=== PATIENT | male | born 1945 | race Caucasian/White ===

== ENCOUNTER 2017-04-11 10:33 | Outpatient (CLI) | payer MEDICARE, BC ==
[~2017-04-11] VITALS: Ht 170.2 cm; Wt 102.3 kg
--- NOTE | ~2017-04-11 | HEMODYNAMI ---
PATIENT:AMLA TIM MEDICAL RECORD: [id number] : 45 LOCATION:[facility] ADMISSION DATE: 04/11/17 Generatedon:04/11/201713:41 Patient name: ALMA TIM Patient #: [id number] SSN: : Date of study: 04/11/2017 Page: Of Hemodynamic Procedure Report Patient Data Patient Demographics Procedure consent was obtained First Name: ALMA Gender: Male Last Name: GLENROY : 1945 Patient #: [id number] Age: 71 year(s) Race: Unknown Additional ID: [id number] Contact details [address]: [address] [place] [address] State: [place] City: [place] Zip code: [address] Past Medical History Allergies: No known allergies Admission Admission Data Admission Date: 04/11/2017 Admission Time: 10:33 Height (in.): 5.7 BSA: 0.36 (m2) Height (cm.): 14.48 BMI: 5020.38 (kg/m2) Weight (lbs.): 232 Weight (kg.): 105.23 Lab Results Lab Result Date: 04/11/2017 Lab Result Time: 0:00 Biochemistry Name Units Result Min Max BUN mg/dl 27 --(----)-* 7 18 Creatinine mg/dl 1.7 --(----)-* 0.6 1.3 CBC Name Units Result Min Max Hemoglobin g/dl 40.4 --(----)-* 13.5 17.5 Procedure Procedure Types Cath Procedure Diagnostic Procedure LHC LHC w/Coronaries w/Grafts Miscellaneous Procedures Moderate Sedation up to 15 minutes Procedure Description Procedure Date Procedure Date: 04/11/2017 Procedure Start Time: 13:21 Procedure End Time: 13:39 Procedure Staff Name Function Roberto Chandler RT Monitor Tong Arnett RN Nurse Say Almaguer MD Performing Physician Cari Mcknight RT Scrub Hattie Perez RT Monitor Procedure Data Cath Procedure Fluoroscopy Diagnostic fluoroscopy Total fluoroscopy Time: 2.6 time: 2.6 min min Diagnostic fluoroscopy Total fluoroscopy dose: dose: 1517 mGy 1517 mGy Contrast Material Contrast Material Type Amount (ml) Isovue 300 96 Entry Location Entry Primary Successful Side Size Upsize Upsize Entry Closure Succes sful Closure Location (Fr) 1 (Fr) 2 (Fr) Remarks Device Remarks Femoral Right 5 Fr Exoseal artery Estimated blood loss: 5 ml Diagnostic catheters Device Type Used For End Catheter Placement Cordis 5Fr JL 4.0 Procedure Catheter (MP) Cordis 5Fr 3DRC Catheter Procedure (MP) Cordis 5Fr Pigtail Procedure Catheter (MP) Procedure Complications No complications Procedure Medications Medication Administration Route Dosage Oxygen NC 2 l/min Benadryl I.V. 50 mg Lidocaine 2% added to field 20 Heparin Flush Bag added to field 2 bags (1000units/500ml NS) 0.9% NaCl I.V. 100 ml/hr Versed I.V. 1 mg Fentanyl I.V. 50 mcg Versed I.V. 1 mg Fentanyl I.V. 50 mcg Versed I.V. 0.5 mg Fentanyl I.V. 25 mcg Hemodynamics Rest BSA: 0.36 (m2) HGB: 40.4 (g/dl) O2 Consumption: Estimated: 38.99 (ml/min) O2 Con sumption indexed: Estimated:108.31 (ml/min/m) Heart Rate: 51 (bpm) Pressure Samples Time Site Value (mmHg) Purpose Heart Use Rate(bpm) 13:30 LV 143/11,21 Snapshot 66 Gradients Valve Time Site Site Mean SEP/DFP Peak To Heart Use 1 2 (mmHg) (sec/min) Peak Rate (mmHg) (bpm) Aortic 13:31 LV AO 58 Snapshots Pre Cath Intra NCS Post Cath Vital Signs Time Heart Resp SPO2 etCO2 NIBP (mmHg) Rhythm Pain Sedation Rate (ipm) (%) (mmHg) Status Level (bpm) 13:11:24 50 16 100 36.9 158/70(124) NSR 0 (11) 10(A) , No pain 13:15:48 50 16 99 32.4 154/68(112) NSR 0 (11) 10(A) , No pain 13:20:17 48 15 94 0 152/70(128) NSR 0 (11) 10(A) , No pain 13:24:43 46 15 94 32.4 124/57(108) NSR 0 (11) 9(A) , No pain 13:29:01 60 16 94 34 142/69(115) NSR 0 (11) 9(A) , No pain 13:33:27 66 17 96 35 143/65(93) NSR 0 (11) 9(A) , No pain 13:37:39 53 15 98 36.1 148/66(113) NSR 0 (11) 10(A) , No pain Medications Time Medication Route Dose Verified Delivered Reason Notes Effe ctiveness by by 13:13:32 Oxygen NC 2 Say Berniceie used for l/min [facility] Arnett lead electrical controls engineer 13:13:39 Benadryl I.V. 50 mg Say Berniceie used for [facility] Arnett lead electrical controls engineer 13:17:10 Heparin Flush added 2 Say Say used for Bag to bags [facility] procedure (1000units/500ml field MD ISIDRO NS) 13:17:10 Lidocaine 2% added 20ml Say Say for local to vial [facility] anesthetic field MD ISIDRO 13:17:16 0.9% NaCl I.V. 100 Say Buffie Per ml/hr [facility] German Arnett RN physician 13:17:25 Versed I.V. 1 mg Say Berniceie for [facility] German Arnett RN sedation 13:19:45 Fentanyl I.V. [address] for mcg [facility] German Arnett RN sedation 13:24:42 Versed I.V. 1 mg Say Buffie for BerglandLisbeth Arnett RN sedation 13:24:45 Fentanyl I.V. [address] for mcg [facility] German Arnett RN sedation 13:29:47 Versed I.V. 0.5 Say Berniceie for mg [facility] German Arnett RN sedation 13:29:51 Fentanyl I.V. 25 Say [address] for mcg [facility] German Arnett RN sedation Procedure Log Time Note 12:54:03 Patient Height : 5.7 inches 12:54:08 Patient Weight : 232 lbs 12:54:58 Tong Arnett RN sent for patient. Start room use. 12:55:00 Time tracking: Regular hours 12:55:04 Plan of Care:Hemodynamics will remain stable., Cardiac rhythm will remain stable., Comfort level will be maintained., Respiratory function will remain adequate., Patient/ family verbilizes understanding of procedure., Procedure tolerated without complication., Recovers from procedure without complications.. 13:00:57 Patient received from Pre/Post Procedure Room to CCL 1 Alert and oriented. Tansferred to table in Supine position. 13:00:58 Correct patient and procedure confirmed by team. 13:00:58 Warm blankets applied, and josie hugger turned on for patient comfort. 13:00:59 Signed procedure consent form obtained from patient. 13:01:01 ECG and BP/O2 sat monitors applied to patient. 13:10:02 H&P Date Dictated: 04/11/2017 Within 30 days and on chart., H&P Addendum completed by physician on day of procedure. (MUST COMPLETE FOR ALL OUTPATIENTS). 13:10:04 Vital chart was started 13:10:06 Baseline sample Acquired. 13:10:11 Rhythm: sinus bradycardia 13:10:12 Full Disclosure recording started 13:10:13 Pre-procedure instructions explained to patient. 13:10:14 Pre-op teaching completed and patient verbalized understanding. 13:10:16 Family in waiting room. 13:10:19 Patient NPO since Midnight. 13:10:26 Patient allergic to No known allergies 13:10:30 Is the patient allergic to Iodine/contrast media? No. 13:10:31 Is patient on blood thinner?Yes 13:10:36 ACC The patient was administered the following blood thiners within the last 24 hours: ACCEffient 13:10:39 Patient diabetic? No. 13:10:44 Previous problem with sedation/anesthesia? No ? 13:10:46 Snore? Yes 13:10:48 Sleep apnea? Yes 13:10:50 Deviated septum? No 13:10:51 Opens mouth fully? Yes 13:10:53 Sticks out tongue? Yes 13:10:57 Airway obstruction? No ? 13:11:00 Dentures? No ? 13:11:03 Pre procedure: right dorsailis pedis pulse 2+ Normal; easily identifiable; not easily obliterated 13:11:10 IV patent on arrival in right hand with 0.9% NaCl at [facility]. 13:11:54 Lab Result : Hemoglobin 40.4 g/dl 13:11:54 Lab Result : Creatinine 1.7 mg/dl 13:11:54 Lab Result : BUN 27 mg/dl 13:11:58 Lab results completed and on chart. 13:12:01 Right groin area was prepped with chlora-prep and draped in sterile fashion 13:12:02 Alarms reviewed by R. N. 13:12:03 Sharps counted by scrub and verified by R.N. 13:12:04 Physician arrived 13:12:05 --------ALL STOP TIME OUT------ 13:12:06 Final Timeout: patient, procedure, and site verified with staff and physician. All members of the team are in agreement. 13:12:08 Right groin site verified by team. 13:12:12 Physical assessment completed. ASA score P 2 - A patient with mild systemic disease as per Say Almaguer MD. 13:12:16 Sedation plan: IV Moderate Sedation Medication:Versed, Fentanyl 13:13:32 Oxygen 2 l/min NC was administered by Tong Arnett RN; used for procedure; 13:13:39 Benadryl 50 mg I.V. was administered by Tong Arnett RN; used for procedure; 13:17:10 Heparin Flush Bag (1000units/500ml NS) 2 bags added to field was administered by Say Almaguer MD; used for procedure; 13:17:10 Lidocaine 2% 20ml vial added to field was administered by Sya Almaguer MD; for local anesthetic; 13:17:16 0.9% NaCl 100 ml/hr I.V. was administered by Tong Arnett RN; Per physician; 13:17:25 Versed 1 mg I.V. was administered by Tong Arnett RN; for sedation; 13:19:18 Use device set Femoral Dx 13:19:20 Acist Syringe opened to sterile field. 13:19:27 Tegaderm 4 x 4 opened to sterile field. 13:19:28 Acist Hand Control opened to sterile field. 13:19:28 Acist Manifold opened to sterile field. 13:19:29 Bag Decanter opened to sterile field. 13:19:30 Terumo 5Fr Mountain Iron Sheath opened to sterile field. 13:19:30 Medline Cath Pack opened to sterile field. 13:19:31 St Rehan 260cm J .035 wire opened to sterile field. 13:19:32 Diagnostic Infinity 5Fr Multipack catheter opened to sterile field. 13:19:45 Fentanyl 50 mcg I.V. was administered by Tong Arnett RN; for sedation; 13:21:04 Procedure started. 13:21:08 Local anesthetic to right femoral artery with Lidocaine 2% by Say Almaguer MD.INITIAL ACCESS ONLY 13:21:39 A 5 Fr sheath was inserted into the Right Femoral artery 13:23:52 A Cordis 5Fr JL 4.0 Catheter (MP) was advanced over the wire and used for Procedure. 13:24:42 Versed 1 mg I.V. was administered by Tong Arnett RN; for sedation; 13:24:45 Fentanyl 50 mcg I.V. was administered by Tong Arnett RN; for sedation; 13:24:53 LCA angiography performed. 13:25:26 Catheter removed. 13:25:56 A Cordis 5Fr 3DRC Catheter (MP) was advanced over the wire and used for Procedure. 13:26:41 RCA angiography performed. 13:27:53 SVG to Circ occluded. 13:28:11 SVG to Diag angiography performed. 13:28:48 DOYLE to LAD angiography performed. 13:29:19 Catheter removed. 13:29:30 A Cordis 5Fr Pigtail Catheter (MP) was advanced over the wire and used for Procedure. 13:29:47 Versed 0.5 mg I.V. was administered by Tong Arnett RN; for sedation; 13:29:51 Fentanyl 25 mcg I.V. was administered by Tong Arnett RN; for sedation; 13:30:00 LV hemodynamics recorded. 13:30:00 LV gram done using SHEPHERD 13:30:03 Injector settings: Ml/sec: 10, Volume: 20, 13:32:13 EF : 55 % 13:32:24 Cordis 5Fr Exoseal opened to sterile field. 13:32:34 Sheath removed intact; hemostasis achieved with Exoseal to the Right Femoral artery. 13:32:36 Procedure ended.(Physican Out) 13:32:47 Fluoroscopy time 02.60 minutes. 13:32:53 Fluoroscopy dose: 1517 mGy 13:32:53 Flurop Dose total: 1517 13:33:18 Contrast amount:Isovue 300 96ml. 13:33:19 Sharps counted by scrub and verified by R.N. 13:33:21 Insertion/operative site no bleeding no hematoma. 13:33:24 Post-op/insertion site Right Femoral artery dressed using a 4 x 4 and Tegaderm. 13:33:28 Post right femoral artery:stable, soft, clean and dry 13:33:29 Post Procedure Pulses reassessed and unchanged 13:33:32 Post procedure: right dorsailis pedis pulse 2+ Normal; easily identifiable; not easily obliterated. 13:33:35 Post-procedure physical assessment completed. ASA score P 2 - A patient with mild systemic disease as per Say Almaguer MD. 13:33:40 Post procedure rhythm: unchanged. 13:33:48 Estimated blood loss: 5 ml 13:33:49 Post procedure instruction explained to patient.Patient verbalizes understanding. 13:33:50 Patient needs reinforcement of post procedure teaching. 13:34:10 Procedure type changed to Cath procedure, Diagnostic procedure, LHC, LHC w/Coronaries w/Grafts, Miscellaneous Procedures, Moderate Sedation up to 15 minutes 13:34:29 Procedure and supply charges have been captured, reviewed, submitted and are correct. 13:34:31 Procedure Complication : No complications 13:38:56 Vital chart was stopped 13:38:57 See physician's report for complete and final results. 13:39:00 Report given to Pre/Post Procedure Room. 13:39:03 Patient transfered to Pre/Post Procedure Room with Bed. 13:39:05 Full Disclosure recording stopped 13:39:05 Procedure ended. 13:39:12 End room use (Document Last) Device Usage Item Name Manufacture Quantity Catalog Hospital Part Current Minimal Lo t# / Number Charge Number Stock Stock Serial# Code Acist Acist 1 [id number] 542819 494792 [id number] 20 Syringe [employer] Inc Tegaderm 4 3M 1 1626W 008465 625262 760147 5 x 4 Acist Acist 1 60074 586439 183405 490784 5 Manifold [employer] Inc Acist Hand Acist 1 50541 327990 669769 090086 5 Control [employer] Inc Bag Microtek 1 2002S 804218 22945 458911 5 Virtual Command. Medline Cardinal 1 [id number] 110787 98764 871940 5 [employer] Terumo 5Fr Terumo 1 BEH176 907088 854026 945560 [address] Rehan 1 168103 867989 176758 882506 30 260cm J .035 wire Diagnostic Cardinal 1 [id number] 247485 22850 878003 30 Infinity Health 5Fr Multipack catheter Cordis 5Fr Cardinal 1 [id number] 5 JL 4.0 Health Catheter (MP) Cordis 5Fr Cardinal 1 365244 5 3DRC Health Catheter (MP) Cordis 5Fr Cardinal 1 [id number] 5 Pigtail Health Catheter (MP) Cordis 5Fr Cardinal 1 EX500 575934 367770 484301 10 [facility] Health Signature Audit [place] Stage Time Signature Unsigned Intra-Procedure 04/11/2017 Hattie Perez 1:41:28 PM RT(R) Signatures Monitor : Roberto Chandler RT Signature : Date : Time : Monitor : Hattie Perez Signature : RT Date : Time : [place] [address] [place] [address]
[~2017-04-11 10:33] MED LIST: BAYER CHEWABLE81 MG PO; BENICAR20 MG PO; CORGARD20 MG PO; EFFIENT10 MG PO; NORVASC5 MG PO; PRILOSEC20 MG PO
[2017-04-11] MEDS ORDERED: TENORMIN25 MG PO (11:01)
[2017-04-11 11:08] VITALS: BP 154/56; Ht 170.2 cm; Wt 102.3 kg
[2017-04-11 11:35] LABS: ANION GAP 14.7 mmol/L (8-16); CALCIUM 9.4 mg/dL (8.5-10.1); CARBON DIOXIDE 24.4 mmol/L (21.0-32.0); CREATININE - SERUM 1.7 mg/dL (0.6-1.3); POTASSIUM - SERUM 5.1 mmol/L (3.5-5.1)
[2017-04-11 11:46] LABS: BASOPHILS 0.4 % (0-2); EOSINOPHILS 1.9 % (0-7); HEMATOCRIT 40.4 % (42.0-54.0); HEMOGLOBIN 13.5 g/dL (13.5-17.5); IMMATURE GRANULOCYTES 0.3 % (0-5); LYMPHOCYTES 22.1 % (15-50); MCH 32.4 pg (26.0-34.0); MCHC 33.4 g/dL (31.0-37.0); MCV 96.9 fL (80.0-100.0); MONOCYTES 7.6 % (2-11); NEUTROPHILS 67.7 % (40-80); PLATELET COUNT 225 10x3/uL (130-400); RBC 4.17 10x6/uL (4.20-6.10); RDW 12.4 % (11.5-14.5); WBC 6.8 10x3/uL (4.8-10.8)
--- NOTE | 2017-04-11 14:18 | NUR ---
1405 LYING FLAT, ROOM AIR. SBRADY, RATE 47 W NO C/O CHEST PAIN. PULSES PALP X 4. R GROIN 5F EXOSEAL C/D/I W NO HEMATOMA OR BLEEDING DR. HOOKER AT BEDSIDE TO TALK WITH FAMILY.
--- NOTE | 2017-04-11 15:40 | NUR ---
1435 REMAINS FLAT. ALL VITALS WNL. R GROIN C/D/I NO HEMATOMA OR BLEEDING. VOIDED 300CC VIA URINAL. AT SIDE. 1530 PIV REMOVED FROM RIGHT HAND WITH BANDAID APPLIED. R GROIN C/D/I. UP TO BEDSIDE TO DRESS WITH ASSIST FROM . D/C INSTRUCTIONS DISCUSSED WITH PATIENT AND AT BEDSIDE. WHEELED OUT VIA WHEELCHAIR BY CATH TEAM.
--- NOTE | 2017-04-13 10:01 | OP ---
PATIENT NAME: ALMA TIM MEDICAL RECORD: [id number] :45 LOCATION:D.CAT ADMISSION DATE: SURGEON: UMAIR AMADOR MD DATE OF OPERATION: 04/11/2017 PROCEDURES: Left heart catheterization, selective coronary angiography, right femoral approach. CATHETERS: A 5-Czech sheath, 5/4 left and right Issa, 5/4 pig. The procedure was well tolerated and the patient returned to briscoe, sheath removed. ExoSeal device placed. FINDINGS: Left ventriculography in 30-degree SHEPHERD view. Normal wall motion, normal systolic function. CORONARY ANATOMY. LEFT MAIN: Left main fills for a short period of time. Did fill the LAD for a short period, then is totally occluded. CIRCUMFLEX: Circumflex of previous stenting is widely patent without evidence of restenosis. RIGHT CORONARY ARTERY: Again, widely patent stents without evidence of restenosis. BYPASS GRAFTS. 1. DOYLE and LAD is widely patent throughout its course without evidence of post-anastomotic stenosis. 2. Saphenous vein graft to diagonal system is widely patent with small runoff to the distal diagonal. IMPRESSION: Patent grafts including left internal mammary artery to left anterior descending, saphenous vein graft to diagonal, patent stents to circumflex and right normal left ventricular function. TRANSINT:[id number] Voice Confirmation ID: [id number] DOCUMENT ID: [id number] UMAIR AMADOR MD at 1001 CC: [id number] DICTATION DATE: 04/11/17 1344 SUPERVISOR DAIRY SANITATION: 04/11/17 1423 DEP CLI 04/11/17 [place] [id number] [place] [id number]
== END 2017-04-11 15:42 | disposition home or self-care (01) ==
LOC: D.CATH 10:33
PROVIDERS: Internal Medicine Interventional Cardiology
DX: I25.10 Atherosclerotic heart disease of native coronary artery without angina pectoris (principal); Z95.1 Presence of aortocoronary bypass graft; Z95.5 Presence of coronary angioplasty implant and graft; Z01.812 Encounter for preprocedural laboratory examination

== ENCOUNTER → 2017-07-09 12:43 | Outpatient (CLI) | payer MEDICARE, BC ==
[2017-04-11 11:08] VITALS: BMI 35.3
[~2017-07-09 12:43] MED LIST changes: +TENORMIN25 MG PO; +XANAX0.5 MG PO
[2017-07-09 12:56] LABS: ALT (SGPT) 71 U/L (10-68); CALC OSMOLALITY 273 mosm/kg (275-300); CALCIUM 9.6 mg/dL (8.5-10.1); CARBON DIOXIDE 26.5 mmol/L (21.0-32.0); CHLORIDE - SERUM 98 mmol/L (98-107); CHOL - HDL RATIO 7.3 ratio (2.3-4.9); CHOLESTEROL, TOTAL 308 mg/dL (0-200); GLUCOSE 106 mg/dL (74-106); HDL CHOLESTEROL 42 mg/dL (32-96); LDL CHOLESTEROL 210 mg/dL (0-100); POTASSIUM - SERUM 5.7 mmol/L (3.5-5.1); SODIUM 133 mmol/L (136-145); TRIGLYCERIDE 284 mg/dL (30-200); TROPONIN-I < 0.017 ng/mL (0.000-0.060); UREA NITROGEN 36 mg/dL (7-18); eGFR NON AFRICAN AMERICAN 35 mL/min (90-120)
== END | disposition home or self-care (01) ==
LOC: D.LABREF 12:43
PROVIDERS: Internal Medicine Interventional Cardiology
DX: R07.9 Chest pain, unspecified (principal)

== ENCOUNTER 2017-07-11 20:30 | Observation (INO) | payer MEDICARE, BC | END 2017-07-12 14:25 | disposition home or self-care (01) | LOC: D.ER 20:30 → D.M2 21:00 | PROC: 02703DZ Dilation of Coronary Artery, One Artery with Intraluminal Device, Percutaneous Approach (ICD-10-PCS; principal; 2017-07-12) | PROC: 4A023N7 Measurement of Cardiac Sampling and Pressure, Left Heart, Percutaneous Approach (ICD-10-PCS; 2017-07-12) | PROC: B2111ZZ Fluoroscopy of Multiple Coronary Arteries using Low Osmolar Contrast (ICD-10-PCS; 2017-07-12) | PROC: B2151ZZ Fluoroscopy of Left Heart using Low Osmolar Contrast (ICD-10-PCS; 2017-07-12) | PROC: B2181ZZ Fluoroscopy of Left Internal Mammary Bypass Graft using Low Osmolar Contrast (ICD-10-PCS; 2017-07-12) | DX: I25.110 Atherosclerotic heart disease of native coronary artery with unstable angina pectoris (principal); T82.855A Stenosis of coronary artery stent, initial encounter; Y83.8 Other surgical procedures as the cause of abnormal reaction of the patient, or of later complication, without mention of misadventure at the time of the procedure; I10 Essential (primary) hypertension; E78.5 Hyperlipidemia, unspecified; Z95.1 Presence of aortocoronary bypass graft; Z95.5 Presence of coronary angioplasty implant and graft; I45.10 Unspecified right bundle-branch block ==

== ENCOUNTER → 2017-08-01 16:01 | Outpatient (CLI) | payer MEDICARE, BC ==
[2017-07-12 03:23] VITALS: BMI 34.8
[2017-08-01 17:50] LABS: BASOPHILS 0.7 % (0-2); EOSINOPHILS 4.2 % (0-7); HEMATOCRIT 37.8 % (42.0-54.0); HEMOGLOBIN 12.5 g/dL (13.5-17.5); IMMATURE GRANULOCYTES 0.3 % (0-5); LYMPHOCYTES 17.3 % (15-50); MCH 32.1 pg (26.0-34.0); MCHC 33.1 g/dL (31.0-37.0); MCV 97.2 fL (80.0-100.0); MEAN PLATELET VOLUME 10.3 fL (7.4-10.4); MONOCYTES 11.3 % (2-11); NEUTROPHILS 66.2 % (40-80); PLATELET COUNT 247 10x3/uL (130-400); RBC 3.89 10x6/uL (4.20-6.10); RDW 12.8 % (11.5-14.5); WBC 7.4 10x3/uL (4.8-10.8)
[2017-08-01 18:24] LABS: ALT (SGPT) 63 U/L (10-68); CHOL - HDL RATIO 6.5 ratio (2.3-4.9); CHOLESTEROL, TOTAL 261 mg/dL (0-200); CREATINE KINASE 322 UL (21-232); CREATININE - SERUM 1.6 mg/dL (0.6-1.3); HDL CHOLESTEROL 40 mg/dL (32-96); LDL CHOLESTEROL 152 mg/dL (0-100); LDL-HDL RATIO 3.8 ratio (1.5-3.5); THYROID STIMULATING HORMONE 1.43 uIU/mL (0.36-3.74); TRIGLYCERIDE 345 mg/dL (30-200); UREA NITROGEN 35 mg/dL (7-18)
[2017-08-01 19:17] LABS: CKMB 3.6 U/L (0.0-3.6)
== END | disposition home or self-care (01) ==
LOC: D.LABREF 16:01
PROVIDERS: Internal Medicine Interventional Cardiology
DX: E78.5 Hyperlipidemia, unspecified (principal)

== ENCOUNTER → 2017-09-30 17:04 | Outpatient (CLI) | payer MEDICARE, BC ==
[2017-07-12 03:23] VITALS: BMI 34.8
[2017-09-30 20:31] LABS: CHOL - HDL RATIO 2.6 ratio (2.3-4.9); LDL-HDL RATIO 1.1 ratio (1.5-3.5)
== END | disposition home or self-care (01) ==
LOC: D.LABREF 17:04
PROVIDERS: Internal Medicine Interventional Cardiology
DX: E78.5 Hyperlipidemia, unspecified (principal)

== ENCOUNTER → 2018-08-05 16:43 | Outpatient (CLI) | payer MEDICARE, BC ==
[2017-07-12 03:23] VITALS: BMI 34.8
[2018-08-05 17:19] LABS: BASOPHILS 0.6 % (0-2); EOSINOPHILS 2.1 % (0-7); HEMATOCRIT 41.4 % (42.0-54.0); HEMOGLOBIN 13.7 g/dL (13.5-17.5); IMMATURE GRANULOCYTES 0.3 % (0-5); MCH 31.6 pg (26.0-34.0); MCHC 33.1 g/dL (31.0-37.0); MCV 95.6 fL (80.0-100.0); MEAN PLATELET VOLUME 10.5 fL (7.4-10.4); MONOCYTES 9.5 % (2-11); NEUTROPHILS 66.5 % (40-80); PLATELET COUNT 245 10x3/uL (130-400); RBC 4.33 10x6/uL (4.20-6.10); RDW 12.6 % (11.5-14.5); WBC 7.1 10x3/uL (4.8-10.8)
[2018-08-05 17:27] LABS: ANION GAP 16.7 mmol/L (8-16); CALCIUM 9.2 mg/dL (8.5-10.1); CARBON DIOXIDE 25.3 mmol/L (21.0-32.0); CHOL - HDL RATIO 3.2 ratio (2.3-4.9); CREATININE - SERUM 2.1 mg/dL (0.6-1.3); LDL-HDL RATIO 1.4 ratio (1.5-3.5)
== END | disposition home or self-care (01) ==
LOC: D.LABREF 16:43
PROVIDERS: ATTEND Internal Medicine Interventional Cardiology
DX: I25.10 Atherosclerotic heart disease of native coronary artery without angina pectoris (principal)

== ENCOUNTER → 2018-11-04 17:12 | Outpatient (CLI) | payer MEDICARE, BC ==
[2017-07-12 03:23] VITALS: BMI 34.8
[2018-11-04 18:08] LABS: BASOPHILS 0.4 % (0-2); EOSINOPHILS 2.5 % (0-7); HEMATOCRIT 37.8 % (42.0-54.0); HEMOGLOBIN 12.4 g/dL (13.5-17.5); IMMATURE GRANULOCYTES 0.1 % (0-5); LYMPHOCYTES 18.2 % (15-50); MCHC 32.8 g/dL (31.0-37.0); MCV 97.4 fL (80.0-100.0); MEAN PLATELET VOLUME 10.5 fL (7.4-10.4); MONOCYTES 7.7 % (2-11); NEUTROPHILS 71.1 % (40-80); PLATELET COUNT 205 10x3/uL (130-400); RBC 3.88 10x6/uL (4.20-6.10); RDW 12.8 % (11.5-14.5); WBC 6.9 10x3/uL (4.8-10.8)
[2018-11-04 18:20] LABS: ANION GAP 8.1 mmol/L (8-16); CALCIUM 9.1 mg/dL (8.5-10.1); CARBON DIOXIDE 24.4 mmol/L (21.0-32.0); CREATININE - SERUM 1.9 mg/dL (0.6-1.3); POTASSIUM - SERUM 5.5 mmol/L (3.5-5.1)
== END | disposition home or self-care (01) ==
LOC: D.LABREF 17:12
PROVIDERS: ATTEND Internal Medicine Interventional Cardiology
DX: I25.10 Atherosclerotic heart disease of native coronary artery without angina pectoris (principal); I10 Essential (primary) hypertension

== ENCOUNTER → 2020-01-19 20:11 | Outpatient (CLI) | payer MEDICARE, BC ==
[2017-07-12 03:23] VITALS: BMI 34.8
[2020-01-19 21:25] LABS: CHOL - HDL RATIO 2.3 ratio (2.3-4.9); LDL-HDL RATIO 0.9 ratio (1.5-3.5)
== END | disposition home or self-care (01) ==
LOC: D.LABREF 20:11
PROVIDERS: ATTEND Internal Medicine Interventional Cardiology
DX: I25.10 Atherosclerotic heart disease of native coronary artery without angina pectoris (principal); E78.5 Hyperlipidemia, unspecified

== ENCOUNTER → 2020-08-16 12:39 | Outpatient (CLI) | payer MEDICARE, BC ==
[2017-07-12 03:23] VITALS: BMI 34.8
--- NOTE | 2020-08-17 10:02 | EC ---
PATIENT:ALMA TIM DATE OF SERVICE: 08/16/20 SEX: M MEDICAL RECORD: [id number] DATE OF : 45 LOCATION:[facility] AGE OF PATIENT: 75 ADMISSION DATE: 08/16/20 REFERRING PHYSICIAN: INTERPRETING PHYSICIAN: UMAIR AMADOR MD ECHOCARDIOGRAM REPORT ECHO CHARGES 4 ECHO COMPLETE Date: 08/16/20 CLINICAL DIAGNOSIS: CAD/ATRIAL FIB/CABG ASSESS EF AND VALVE DUE TO DYSPNEA ECHOCARDIOGRAPHIC MEASUREMENTS (adult normal given) AC root (d.<3.7cm) 3.4 cm LV Septum d (<1.2 cm> 1.4 cm Valve Excursion 1.3 cm LV Septum (systole) 1.9 cm Left Atria (s.<4.0cm> 3.9 cm LVPW d(<1.2cm) 1.8 cm RV (d.<2.3cm) 4.2 cm LVPW (sytole) 2.2 cm LV diastole(<5.6CM) 5.2 cm MV E-F(>70mm/sec) cm LV systole 3.3 cm LVOT Diameter 1.4 cm MV exc.(>10mm) 1.4 cm Est.ejection fraction (50-75%) % DOPPLER: LVIT cm/sec A 77.0 cm/sec E 90.0 cm/sec LA cm/sec RVSP 20 mmHg LVOT 164 cm/sec AOP1/2T m/s Asc. Ao 218 cm/sec RVOT 82 cm/sec RA cm/sec PA 123 cm/sec AV Gradient Peak 19.02mmHg AV Mean 8.36 mmHg AV Area 1.5 cm MV Gradient Peak 4.63 mmHg MV Mean 1.58 mmHg MV Area cm COMMENTS: Soil Technologist: 2 [place] [address] Director Consumer: 3 Dr. Almaguer TAPE# PACS Pericardial Effusion N DATE OF SERVICE: Adequate 2D, color-flow imaging, spectral Doppler, and M-Mode FINDINGS: LVH is present. Mild LV internal dimension is normal. Wall motion is normal. EF is greater than or equal to 55%. Aortic valve sclerosis without stenosis by Doppler interrogation. Trivial AI by color flow imaging. Left atrium is normal. Mitral valve shows no prolapse. Trace MR. Right side is grossly normal. Mild TR. ECHOCARDIOGRAM REPORT [id number] ALMA TIM TRANSINT:[id number] Voice Confirmation ID: [id number] DOCUMENT ID: [id number] UMAIR AMADOR MD at 1002 CC: [id number] DICTATION DATE: 08/16/20 1530 CREDIT PROCESSOR: 08/16/20 2315 DEP CLI 08/16/20 [place] [id number] [place] [id number]
== END | disposition home or self-care (01) ==
LOC: D.HCCECHO 12:30
PROVIDERS: ATTEND Internal Medicine Interventional Cardiology
DX: I25.10 Atherosclerotic heart disease of native coronary artery without angina pectoris (principal)

== ENCOUNTER 2020-08-30 10:54 | Day surgery (SDC) | payer MEDICARE, BC ==
[~2020-08-30] VITALS: Ht 170.2 cm; Wt 109.1 kg
--- NOTE | ~2020-08-30 | HEMODYNAMI ---
PATIENT:ALMA TIM MEDICAL RECORD: [id number] : 45 LOCATION:[facility] ADMISSION DATE: 08/30/20 Generatedon:114:00 Patient name: ALMA TIM Patient #: [id number] SSN: [id number] : 1945 Date of study: 08/30/2020 Page: Of Hemodynamic Procedure Report Patient Data Patient Demographics Procedure consent was obtained First Name: ALMA Gender: Male Last Name: GLENROY : 1945 Patient #: [id number] Age: 75 year(s) Race: SSN: [id number] Additional ID: [id number] Contact details Address: [address] [place] [address] State: [place] City: [place] Zip code: [address] Past Medical History Allergies: No known allergies Admission Admission Data Admission Date: 08/30/2020 Admission Time: 10:54 Arrival Date: 08/30/2020 Arrival Time: 0:00 Admit Source: Other Insurance Payor: Medicare [facility] #: [id number] Height (in.): 67 BSA: 2.19 (m2) Height (cm.): 170.18 BMI: 37.67 (kg/m2) Weight (lbs.): 240.5 Weight (kg.): 109.09 Lab Results Lab Result Date: 08/30/2020 Lab Result Time: 0:00 Biochemistry Name Units Result Min Max BUN mg/dl 28 --(----)-* 7 18 Creatinine mg/dl 1.5 --(----)-* 0.6 1.3 eGFR ml/min 48 *-(----)-- 90 120 NONAFRICAN CBC Name Units Result Min Max Hematocrit % 40.6 -*(----)-- 42 54 Hemoglobin g/dl 13.4 -*(----)-- 13.5 17.5 Procedure Procedure Types Cath Procedure Diagnostic Procedure [facility] w/Coronaries Sedation Charges Moderate Sedation 40-54 minutes PCI Procedure Hemochron ACT Test PTCA PTCA Initial Procedure Description Procedure Date Procedure Date: 08/30/2020 Procedure Start Time: 13:09 Procedure End Time: 13:54 Procedure Staff Name Function Say Bermudez MD Performing Physician Juanito Sanchez RN Nurse Deneen Hamilton RT Scrub Suyapa Love RT Monitor Procedure Data Cath Procedure Fluoroscopy Diagnostic fluoroscopy Total fluoroscopy Time: time: 20.7 min 20.7 min Diagnostic fluoroscopy Total fluoroscopy dose: dose: 2992 mGy 2992 mGy Contrast Material Contrast Material Type Amount (ml) Isovue 370 133 Entry Location Entry Primary Successful Side Size Upsize Upsize Entry Closure Succes sful Closure Location (Fr) 1 (Fr) 2 (Fr) Remarks Device Remarks Femoral Right 5 Fr 6 Fr Exoseal artery Short Estimated blood loss: 10 ml Diagnostic catheters Device Type Used For End Catheter Placement MULTIPACK JL 4.0 5Fr Procedure catheter MULTIPACK 3DRC 5Fr Procedure catheter MULTIPACK Pigtail 5 Fr Procedure catheter Procedure Complications No complications Procedure Medications Medication Administration Route Dosage 0.9% NaCl I.V. 100 ml/hr Oxygen etCO2 Nasal cannula 2 l/min Heparin Flush Bag added to field 2 bags (1000units/500ml NS) Lidocaine 2% added to field 20 Versed I.V. 2 mg Fentanyl I.V. 100 mcg Versed I.V. 1 mg Heparin Bolus I.V. 5000 units Integrilin (Bolus I.V. 9.5 ml 2mg/ml) Integrilin (Bolus wasted 0.5 ml 2mg/ml) Versed I.V. 1 mg Versed I.V. 1 mg Cardene I.V. 300 mcg Versed I.V. 1 mg Versed I.V. 1 mg Effient P.O. 60 mg Hemodynamics Rest BSA: 2.19 (m2) HGB: 13.4 (g/dl) O2 Consumption: Estimated: 244.83 (ml/min) O2 Co nsumption indexed: Estimated:111.79 (ml/min/m) Heart Rate: 62 (bpm) Pressure Samples Time Site Value (mmHg) Purpose Heart Use Rate(bpm) 13:17 LV 98/6,5 Snapshot 68 Gradients Valve Time Site Site Mean SEP/DFP Peak To Heart Use 1 2 (mmHg) (sec/min) Peak Rate (mmHg) (bpm) Aortic 13:17 LV AO 71 Snapshots Pre Cath Intra NCS Post Cath Vital Signs Time Heart Resp SPO2 etCO2 NIBP (mmHg) Rhythm Pain Sedation Rate (ipm) (%) (mmHg) Status Level (bpm) 13:07:11 60 17 97 32.9 163/75(130) NSR 0 (11) 10(A) , No pain 13:11:37 61 13 95 36.7 170/73(131) NSR 0 (11) 10(A) , No pain 13:16:04 71 18 95 31.4 166/64(117) NSR 0 (11) 10(A) , No pain 13:20:22 72 15 97 0 162/82(136) NSR 0 (11) 10(A) , No pain 13:24:42 66 15 94 28.4 144/71(125) NSR 0 (11) 10(A) , No pain 13:29:04 65 19 97 0 150/66(108) NSR 0 (11) 10(A) , No pain 13:33:26 65 15 96 37.4 143/68(106) NSR 0 (11) 10(A) , No pain 13:37:48 69 18 96 23.9 139/65(100) NSR 0 (11) 10(A) , No pain 13:42:10 65 15 95 37.4 138/61(109) NSR 0 (11) 10(A) , No pain 13:46:31 63 16 95 39.6 140/64(106) NSR 0 (11) 10(A) , No pain 13:51:38 59 16 98 31.4 144/64(100) NSR 0 (11) 10(A) , No pain 13:55:54 67 28 97 28.4 138/74(106) NSR 0 (11) 10(A) , No pain Medications Time Medication Route Dose Verified Delivered Reason Notes Effectiveness by by 13:04:20 0.9% NaCl I.V. 100 Juanito Juanito Per physician ml/hr Daniel Sanchez RN RN 13:04:29 Oxygen etCO2 2 Juanito Juanito for low 02 sats Nasal l/min Daniel Sanchez cannula RN RN 13:04:40 Heparin Flush added 2 Juanito Juanito used for Bag to bags Lorigan Lorigan procedure (1000units/500ml field RN RN NS) 13:04:52 Lidocaine 2% added 20ml Juanito Juanito for local to vial Daniel Sanchez anesthetic RN RN 13:11:27 Versed I.V. 2 mg Juanito Juanito for sedation Daniel Sanchez RN RN 13:11:35 Fentanyl I.V. 100 Juanito Juanito for sedation mcg Daniel Sanchez RN RN 13:17:05 Versed I.V. 1 mg Juanito Juanito for sedation Daniel Sanchez RN RN 13:25:44 Heparin Bolus I.V. 5000 Juanito Juanito for units Daniel Sanchez anticoagulation RN RN 13:26:06 Integrilin I.V. 9.5 Juanito Juanito for (Bolus 2mg/ml) ml Daniel Sanchez antiplatelet RN RN therapy 13:26:17 Integrilin wasted 0.5 Juanito Juanito to sharp's (Bolus 2mg/ml) ml Daniel Sanchez RN RN 13:26:37 Versed I.V. 1 mg Juanito Juanito for sedation Daniel Sanchez RN RN 13:32:08 Versed I.V. 1 mg Juanito Juanito for sedation Daniel Sanchez RN RN 13:34:22 Cardene I.V. 300 Juanito Say for mcg Daniel Tang RN, MD 13:40:04 Versed I.V. 1 mg Juanito Say for sedation Daniel Bermudez RN, MD 13:52:40 Versed I.V. 1 mg Juanito Say for sedation Daniel Bermudez RN, MD 13:58:37 Effient P.O. 60 mg Juanito Say for [facility] antiplatelet JULIAN ISIDRO therapy Procedure Log Time Note 12:05:42 Informed consent obtained and on chart 12:06:03 Diagnostic Cath Status : Elective 12:10:29 Arrival Date: 08/30/2020 12:00:00 AM 12:10:30 Admit Source: Other 12:10:35 Insurance Payor : Medicare 12:11:04 Patient Height : 67 inches 12:11:14 Patient Weight : 240.5 lbs 12:11:31 ACC Patient presents with Stable Angina CCS Anginal Class 2--Slight limitation of ordinary activity. 12:11:34 Procedure Status Elective Heart Cath (OP). 12:11:35 Time tracking: Regular hours (M-F 7:00 - 5:00) 12:11:40 Plan of Care:Hemodynamics will remain stable., Cardiac rhythm will remain stable., Comfort level will be maintained., Respiratory function will remain adequate., Patient/ family verbilizes understanding of procedure., Procedure tolerated without complication., Recovers from procedure without complications.. 12:34:25 Patient NPO since Midnight. 12:34:30 Patient allergic to No known allergies 12:34:36 Lab results completed and on chart. 12:35:25 Lab Result : BUN 28 mg/dl 12:35: Lab Result : Creatinine 1.5 mg/dl 12:35: Lab Result : eGFR NONAFRICAN 48 ml/min 12:35:25 Lab Result : Hemoglobin 13.4 g/dl 12:35:25 Lab Result : Hematocrit 40.6 % 12:44:39 Juanito Sanchez RN sent for patient. Start room use. 12:45:46 Family in waiting room. 12:45:49 Pre-procedure instructions explained to patient. 12:45:49 Pre-op teaching completed and patient verbalized understanding. 12:45:54 Alarms reviewed by R. N. 12:45:54 Sharps counted by scrub and verified by R.N. 12:46:04 Stress Test: no; N/A ? 12:46:07 Right groin area was prepped with chlora-prep and draped in sterile fashion 12:46:11 Use device set Femoral Dx 12:47:10 Patient pain scale 0/10 ?. 12:54:05 Patient received from Pre/Post Procedure Room to [facility] 2 Alert and oriented. Tansferred to table in Supine position. 12:54:06 Warm blankets applied, and josie hugger turned on for patient comfort. 12:54:06 Correct patient and procedure confirmed by team. 12:54:06 ECG and BP/O2 sat monitors applied to patient. 13:04:20 0.9% NaCl 100 ml/hr I.V. was administered by Juanito Sanchez RN; Per physician; Verbal order read back and verified. 13:04:29 Oxygen 2 l/min etCO2 Nasal cannula was administered by Juanito Sanchez RN; for low 02 sats; Verbal order read back and verified. 13:04:40 Heparin Flush Bag (1000units/500ml NS) 2 bags added to field was administered by Juanito Sanchez RN; used for procedure; Verbal order read back and verified. 13:04:52 Lidocaine 2% 20ml vial added to field was administered by Juanito Sanchez RN; for local anesthetic; Verbal order read back and verified. 13:05:03 Vital chart was started 13:05:04 Full Disclosure recording started 13:05:07 Is the patient allergic to Iodine/contrast media? No. 13:05:09 Was the patient premedicated? Yes 13:05:20 Is patient on blood thinner?Yes 13:05:22 Patient diabetic? No. 13:05:26 ----Pre-sedation anethsthesia assessment.---- 13:05:29 Previous problem with sedation/anesthesia? No ? 13:05:30 Snore? Yes 13:05:31 Sleep apnea? Yes 13:05:33 Deviated septum? No 13:05:34 Opens mouth fully? Yes 13:05:35 Sticks out tongue? Yes 13:05:39 Dentures? No ? 13:05:41 Airway obstruction? Yes CPAP AT NIGHT 13:05:49 Pre procedure: right dorsailis pedis pulse 1+ Palpable, but thready & weak; easily obliterated 13:05:52 ACIST Syringe (98163) opened to sterile field. 13:05:53 Bag Decanter (2002S) opened to sterile field. 13:05:54 Medline Cath Pack ([id number]) opened to sterile field. 13:05:55 ACIST Hand Control (37353) opened to sterile field. 13:05:55 ACIST Manifold (60228) opened to sterile field. 13:05:56 DIAGNOSTIC Multipack 5Fr catheter set (PE0400) opened to sterile field. 13:05:57 SHEATH 5FR Coleharbor (EQS617) opened to sterile field. 13:05:58 EMERALD Guide Wire (425-331) opened to sterile field. 13:05:59 Tegaderm 4 x 4 (1626W) opened to sterile field. 13:06:04 Baseline sample Acquired. 13:06:07 Rhythm: sinus rhythm 13:08:18 --------ALL STOP TIME OUT------ 13:08:18 Final Timeout: patient, procedure, and site verified with staff and physician. All members of the team are in agreement. 13:08:19 Right groin site verified by team. 13:08:22 Fire Safety Assessment: A--An alcohol-based skin anteseptic being used preoperatively., C--Open oxygen or nitrous oxide is being used., D--An ESU, laser, or fiber-optic light is being used. 13:08:24 Zero performed for pressure channel P1 13:08:28 Physical assessment completed. ASA score P 2 - A patient with mild systemic disease as per Say Bermudez MD. 13:08:33 3a) 45-59 Moderately reduced kidney function. 13:08:35 Maximum allowable contrast dose (3.7 X eGFR X 0.75)133 ml. 13:08:39 Sedation plan: IV Moderate Sedation Medication:Versed, Fentanyl 13:08:42 Procedure started. 13:08:44 Zero performed for pressure channel P1 13:09:31 Zero performed for pressure channel P1 13:09:44 Local anesthetic to right femoral artery with Lidocaine 2% by Say Bermudez MD.INITIAL ACCESS ONLY 13:10:42 A 5 Fr sheath was inserted into the Right Femoral artery 13:11:17 A MULTIPACK JL 4.0 5Fr catheter was advanced over the wire and used for Procedure. 13:11:27 Versed 2 mg I.V. was administered by Juanito Sanchez RN; for sedation; Verbal order read back and verified. 13:11:35 Fentanyl 100 mcg I.V. was administered by Juanito Sanchez RN; for sedation; Verbal order read back and verified. 13:11:54 LCA angiography performed. 13:11:58 Injector settings: Ml/sec: 3, Volume: 6, 13:13:56 Catheter removed. 13:14:03 A MULTIPACK 3DRC 5Fr catheter was advanced over the wire and used for Procedure. 13:14:18 RCA angiography performed. 13:14:22 Injector settings: Ml/sec: 3, Volume: 6, 13:14:38 ACCDominant side:Right 13:14:48 SVG to Diag angiography performed. 13:14:50 Injector settings: Ml/sec: 3, Volume: 6, 13:15:36 DOYLE to LAD angiography performed. 13:15:39 Injector settings: Ml/sec: 3, Volume: 6, 13:16:22 Catheter removed. 13:16:31 A MULTIPACK Pigtail 5 Fr catheter was advanced over the wire and used for Procedure. 13:16:54 Injector settings: Ml/sec: 5, Volume: 15, 13:16:57 LV gram done using SHEPHERD 13:17:05 Versed 1 mg I.V. was administered by Juanito Sanchez RN; for sedation; Verbal order read back and verified. 13:17:06 LV hemodynamics recorded. 13:17:14 EF : 55 % 13:17:22 Catheter removed. 13:17:23 Proceeding to intervention. 13:17:28 Use device set AURORA PCI 13:17:38 SHEATH 6FR Coleharbor (SOD545) opened to sterile field. 13:17:43 INFLATOR Merit BasixCompak (IB5750) opened to sterile field. 13:18:25 BMW 300cm Zachary 2 J wire ([id number]) opened to sterile field. 13:18:34 Sheath upsized to a 6 Fr Short. 13:19:06 GUIDE 6FR JR 4.0 catheter (XT8QX87) opened to sterile field. 13:19:36 6 Fr JR 4 guide catheter was inserted over the wire 13:20:10 BMW 300 wire advanced. 13:22:45 UNABLE TO CROSS WITH BMW WIRE, CHANGING GUIDES. 13:22:54 Guide catheter removed. 13:23:12 GUIDE 6FR LCB catheter (LA6LCB) opened to sterile field. 13:23:42 6 Fr LCB guide catheter was inserted over the wire 13:25:44 Heparin Bolus 5000 units I.V. was administered by Juanito Sanchez RN; for anticoagulation; Verbal order read back and verified. 13:26:01 BMW 300 wire advanced. 13:26:06 Integrilin (Bolus 2mg/ml) 9.5 ml I.V. was administered by Juanito Sanchez RN; for antiplatelet therapy; Verbal order read back and verified. 13:26:17 Integrilin (Bolus 2mg/ml) 0.5 ml wasted was administered by Juanito Sanchez RN; to sharp's; Verbal order read back and verified. 13:26:37 Versed 1 mg I.V. was administered by Juanito Sanchez RN; for sedation; Verbal order read back and verified. 13:27:34 Wire advanced across lesion. 13:27:57 Pre PCI Site: Vein Graft Diag1 has 90% stenosis. 13:30:51 The CARMELITA OTW 3.0 x 18 stent ([id number]) was advanced then removed because of failure to cross lesion 13:31:01 Stent catheter was removed intact over wire. 13:32:08 Versed 1 mg I.V. was administered by Juanito Sanchez RN; for sedation; Verbal order read back and verified. 13:34:22 Cardene 300 mcg I.V. was administered by Say Bermudez MD; for vasodilation; Verbal order read back and verified. 13:34:49 Inflate balloon Inflation number: 1 A EUPHORA 2.5 x 15 Balloon ([id number]) was prepped and advanced across the Aorta Left -> 1st Diag1 90, then inflated to 10 ROJELIO for 0:18 (min:sec) . 13:35:06 Inflation number: 2 The EUPHORA 2.5 x 15 Balloon ([id number]) was reinflated across the Aorta Left -> 1st Diag1 , to 12 ROJELIO for 0:10 (min:sec) . 13:35:28 Inflation number: 1 The EUPHORA 2.5 x 15 Balloon ([id number]) was reinflated across the Aorta Left -> 1st Diag , to 12 ROJELIO for 0:06 (min:sec) . 13:35:55 Inflation number: 2 The EUPHORA 2.5 x 15 Balloon ([id number]) was reinflated across the Aorta Left -> 1st Diag , to 12 ROJELIO for 0:12 (min:sec) . 13:37:04 Inflation number: 3 The EUPHORA 2.5 x 15 Balloon ([id number]) was reinflated across the Aorta Left -> 1st Diag , to 14 ROJELIO for 0:04 (min:sec) . 13:38:03 Inflation number: 4 The EUPHORA 2.5 x 15 Balloon ([id number]) was reinflated across the Aorta Left -> 1st Diag , to 14 ROJELIO for 0:19 (min:sec) . 13:38:44 Inflation number: 5 The EUPHORA 2.5 x 15 Balloon ([id number]) was reinflated across the Aorta Left -> 1st Diag , to 16 ROJELIO for 0:15 (min:sec) . 13:39:07 Inflation number: 6 The EUPHORA 2.5 x 15 Balloon ([id number]) was reinflated across the Aorta Left -> 1st Diag , to 16 ROJELIO for 0:10 (min:sec) . 13:39:27 Inflation number: 3 The EUPHORA 2.5 x 15 Balloon ([id number]) was reinflated across the Aorta Left -> 1st Diag1 , to 16 ROJELIO for 0:08 (min:sec) . 13:39:36 Balloon removed over the wire. 13:40:04 Versed 1 mg I.V. was administered by Say Bermudez MD; for sedation; Verbal order read back and verified. 13:43:34 The CARMELITA OTW 3.0 x 18 stent ([id number]) was advanced then removed because of failure to cross lesion 13:43:44 Stent catheter was removed intact over wire. 13:45:41 The EMERGE OTW 2.5 x 15 balloon ([id number]) was advanced and then removed because of failure to cross lesion 13:45:56 Balloon removed over the wire. 13:45:56 Wire removed. 13:45:59 CHOICE PT Extra Support J 300cm guide wire ([id number]) opened to sterile field. 13:46:06 CHOICE PT 300 wire advanced. 13:50:02 The EMERGE OTW 2.5 x 15 balloon ([id number]) was advanced and then removed because of failure to cross lesion 13:50:05 Wire removed. 13:50:08 Guide catheter removed. 13:51:00 EXOSEAL 6Fr (EX600) opened to sterile field. 13:51:12 Sheath removed intact; hemostasis achieved with Exoseal to the Right Femoral artery. 13:51:18 Fluoroscopy time 20.70 minutes. 13:51:22 Flurop Dose total: 2992 13:51:22 Fluoroscopy dose: 2992 mGy 13:51:27 Dose Area Product 423375 mGy/cm. 13:51:31 Procedure ended.(Physican Out) 13:51:43 Contrast amount:Isovue 370 133ml. 13:51:45 Maximum allowable dose exceeded? No. 13:51:52 Sharps counted by scrub and verified by R.N. 13:51:57 Post-op/insertion site Right Femoral artery dressed using a 4 x 4 and Tegaderm. 13:52:02 Post right femoral artery:stable, soft, clean and dry 13:52:04 Post Procedure Pulses reassessed and unchanged 13:52:06 Post procedure: right dorsailis pedis pulse 1+ Palpable, but thready & weak; easily obliterated. 13:52:09 Post-procedure physical assessment completed. ASA score P 2 - A patient with mild systemic disease as per Say Bermudez MD. 13:52:11 Post procedure rhythm: unchanged. 13:52:14 Estimated blood loss: 10 ml 13:52:15 Post procedure instruction explained to patient.Patient verbalizes understanding. 13:52:16 Patient needs reinforcement of post procedure teaching. 13:52:40 Versed 1 mg I.V. was administered by Say Bermudez MD; for sedation; Verbal order read back and verified. 13:52:59 Procedure type changed to Cath procedure, Diagnostic procedure, LHC, [facility] w/Coronaries, Sedation Charges, Moderate Sedation 40-54 minutes, PCI procedure, Hemochron ACT Test, PTCA, PTCA Initial 13:53:52 Procedure and supply charges have been captured, reviewed, submitted and are correct. 13:53:55 Procedure Complication : No complications 13:54:00 [facility] Findings: MVD- PCI performed (see procedure note) 13:54:02 Operative report dictated upon procedure completion. 13:54:02 See physician's report for complete and final results. 13:54:04 Report given to Pre/Post Procedure Room. 13:54:07 Patient transfered to Pre/Post Procedure Room with Stretcher. 13:54:09 Procedure ended. 13:54:09 Full Disclosure recording stopped 13:54:19 ACC-PCI Only Patient was given prescriptions, or instructed by Say Bermudez MD to start/continue the following medications upon discharge: Effient 13:54:21 End room use (Document Last) 13:54:45 End room use (Document Last) 13:55:06 End room use (Document Last) 13:58:37 Effient 60 mg P.O. was administered by Say Bermudez MD; for antiplatelet therapy; Verbal order read back and verified. 13:59:27 ACT drawn and resulted at 211 seconds. (normal therapeutic range 180-240 seconds). 14:00:04 Vital chart was stopped Intervention Summary Intervention Notes Time ActionType Lesion and Equipment Action# Pressure Duration Attributes Used 13:30:51 Discard CARMELITA OTW 3.0 Stent x 18 stent ([id number]) 13:34:49 Inflate Aorta Left EUPHORA 2.5 x 1 10 00:19 balloon -> 1st 15 Balloon Diag1 ([id number]) 13:35:06 Reinflate Aorta Left EUPHORA 2.5 x 2 12 00:10 balloon -> 1st 15 Balloon Diag1 ([id number]) 13:35:28 Reinflate Aorta Left EUPHORA 2.5 x 1 12 00:06 balloon -> 1st Diag 15 Balloon ([id number]) 13:35:55 Reinflate Aorta Left EUPHORA 2.5 x 2 12 00:12 balloon -> 1st Diag 15 Balloon ([id number]) 13:37:04 Reinflate Aorta Left EUPHORA 2.5 x 3 14 00:04 balloon -> 1st Diag 15 Balloon ([id number]) 13:38:03 Reinflate Aorta Left EUPHORA 2.5 x 4 14 00:20 balloon -> 1st Diag 15 Balloon ([id number]) 13:38:44 Reinflate Aorta Left EUPHORA 2.5 x 5 16 00:15 balloon -> 1st Diag 15 Balloon ([id number]) 13:39:07 Reinflate Aorta Left EUPHORA 2.5 x 6 16 00:10 balloon -> 1st Diag 15 Balloon ([id number]) 13:39:27 Reinflate Aorta Left EUPHORA 2.5 x 3 16 00:08 balloon -> 1st 15 Balloon Diag1 ([id number]) 13:43:34 Discard CARMELITA OTW 3.0 Stent x 18 stent ([id number]) 13:45:41 Discard EMERGE OTW Balloon 2.5 x 15 balloon ([id number]) 13:50:02 Discard EMERGE OTW Balloon 2.5 x 15 balloon ([id number]) Device Usage Item Name Manufacture Quantity Catalog Number [facility] Part Current M inimal Lot# / Charge Number Stock Stock Serial# Code ACIST Syringe Acist 1 98909 518271 122558 880184 2 0 (88609) wavecatch Inc Bag Decanter Microtek 1 960848 31601 301098 5 (2002S) Medical Inc. Medline Cath Medline 1 [id number] 593692 96410 169053 5 Pack ([id number]) ACIST Hand Acist 1 47629 403109 563202 903249 5 Control Medical (99585) Systems Inc ACIST Acist 1 23001 342638 749194 792105 5 Manifold Medical (29841) Systems Inc DIAGNOSTIC Cardinal 1 XK1418 984328 36951 258020 3 0 Multipack 5Fr Health catheter set (JQ0472) SHEATH 5FR Terumo 1 DWB784 153952 464880 692066 5 [place]harbor (NES494) EMERALD Guide Cardinal 1 502-455 716444 120023 057208 5 Wire Health (502-455) Tegaderm 4 x 3M 1 1626W 387079 084851 612665 5 4 (1626W) MULTIPACK JL Cardinal 1 406627 5 4.0 5Fr Health catheter MULTIPACK Cardinal 1 182848 5 3DRC 5Fr Health catheter MULTIPACK Cardinal 1 244655 5 Pigtail 5 Fr Health catheter SHEATH 6FR Terumo 1 VCW234 282544 828030 329397 4 0 [place] (HIW981) INFLATOR Merit 1 NY2005 547418 860870 447671 1 5 Maison [employer] BasixCompak (US8200) BMW 300cm Morgan 1 [id number] 787517 942549 245641 5 Zachary 2 J Vascular wire (7303872E) GUIDE 6FR JR Medtronic 1 ME5IS22 357064 37670 494097 1 4.0 catheter (QM4FT12) GUIDE 6FR LCB Medtronic 1 LA6LCB 593288 74046 278702 1 catheter (LA6LCB) CARMELITA OTW 3.0 Medtronic 2 [id number] 207537 6813899 884812 5 [id number] x 18 stent [id number] ([id number]) EUPHORA 2.5 x Medtronic 1 [id number] 087381 278353 856789 5 [id number] 15 Balloon ([id number]) EMERGE OTW Eldridge 2 [id number] 149061 805062 560946 5 [id number] 2.5 x 15 Scientific [id number] balloon ([id number]) CHOICE PT Eldridge 1 [id number] 299864 596900 381646 5 Extra Support Scientific J 300cm guide wire ([id number]) EXOSEAL 6Fr Cardinal 1 EX600 631780 810100 028727 1 0 (EX600) Health Signature Audit [place] Stage Time Signature Unsigned Intra-Procedure 08/30/2020 Suyapa Love 1:54:45 PM RT(R) Intra-Procedure 08/30/2020 Juanito Sanchez RN 1:55:06 PM Intra-Procedure 08/30/2020 Say Bermudez MD 2:00:01 PM Signatures Performing Physician : Say Signature : [facility] Date : Time : Nurse : Juanito Sanchez RN Signature : Date : Time : Monitor : Suyapa Love RT Signature : Date : Time : [address] [address]
[2020-08-30] MEDS ORDERED: VOLTAREN75 MG (11:26)
[2020-08-30] MEDS ORDERED: VOLTAREN100 GM TOPICAL (11:26)
[2020-08-30 11:42] VITALS: BP 172/58; Ht 170.2 cm; Wt 109.1 kg
[2020-08-30] MEDS ORDERED: REPATHA SY140 MG/1 M SC (11:59)
[2020-08-30 12:31] LABS: BASOPHILS 0.5 % (0-2); EOSINOPHILS 2.5 % (0-7); HEMATOCRIT 40.6 % (42.0-54.0); HEMOGLOBIN 13.4 g/dL (13.5-17.5); IMMATURE GRANULOCYTES 0.2 % (0-5); LYMPHOCYTE ABS# 1.23 10x3/uL (1.32-3.57); LYMPHOCYTES 19.3 % (15-50); MCH 32.4 pg (26.0-34.0); MCV 98.1 fL (80.0-100.0); MEAN PLATELET VOLUME 10.8 fL (7.4-10.4); MONOCYTES 11.2 % (2-11); NEUTROPHIL ABS# 4.22 10x3/uL (1.78-5.38); NEUTROPHILS 66.3 % (40-80); PLATELET COUNT 209 10x3/uL (130-400); RBC 4.14 10x6/uL (4.20-6.10); RDW 12.6 % (11.5-14.5); WBC 6.4 10x3/uL (4.8-10.8)
[2020-08-30 12:32] LABS: ANION GAP 15.4 mmol/L (8-16); CALCIUM 9.3 mg/dL (8.5-10.1); CARBON DIOXIDE 21.9 mmol/L (21.0-32.0); CHOL - HDL RATIO 2.6 ratio (2.3-4.9); CREATININE - SERUM 1.5 mg/dL (0.6-1.3); POTASSIUM - SERUM 5.3 mmol/L (3.5-5.1)
[2020-08-30] MEDS ORDERED: EFFIENT10 MG PO (14:09)
--- NOTE | 2020-08-30 14:12 | NUR ---
PT REC'D TO CATH RECOVERY ROOM 7. MONITORS ESTAB. SEE POST CATH ARABIC PROFESSOR FLOWSHEETS. AT BS. ALARMS ON AND C/L IN REACH.
--- NOTE | 2020-08-30 14:27 | NUR ---
R GROIN EXOSEAL SITE SOFT, NO S/S BLEEDING OR HEMATOMA. R LEG/FOOT WARM WITH PALP PULSES AND BRISK CAP REFILL. VSS. PT AWAKENS EASILY, DENIES PAIN OR NEEDS. IV PATENT. ALARMS ON AND C/L IN REACH.
--- NOTE | 2020-08-30 15:00 | NUR ---
R GROIN SITE SOFT, NO S/S BLEEDING OR HEMATOMA. R LEG/FOOT WARM WITH PALP PULSES AND BRISK CAP REFILL. VSS. PT RESTING QUIETLY. ALARMS ON AND C/L IN REACH.
--- NOTE | 2020-08-30 15:15 | NUR ---
PT RESTING QUIETLY, VSS. R GROIN SITE SOFT, NO S/S BLEEDING OR HEMATOMA. R LEG/FOOT WARM WITH PALP PULSES AND BRISK CAP REFILL. ALARMS ON AND C/L IN REACH.
--- NOTE | 2020-08-30 15:45 | NUR ---
PT VOIDED 400CC CLEAR, YELLOW URINE IN URINAL. R GROIN EXOSEAL SITE SOFT, NO S/S BLEEDING OR HEMATOMA. PULSES PALP. LILIANE-CARE AND HAND HYGIENE PER PT. GIVEN APPLE JUICE PER REQUEST. ALARMS ON AND C/L IN REACH.
--- NOTE | 2020-08-30 16:12 | NUR ---
DR. AMADOR AT . ZOILA. Eh LOYD SITE C/D/I. ZOILA.
--- NOTE | 2020-08-30 16:40 | NUR ---
R GROIN SITE SOFT, C/D/I, PULSES PALP. PT DENIES PAIN OR NEEDS. ALARMS ON AND C/L IN REACH.
--- NOTE | 2020-08-30 16:53 | NUR ---
R GROIN SITE SOFT, NO S/S BLEEDING OR HEMATOMA. PULSES PALP. VSS. HOB ELEVATED SLOWLY. FRESH WATER PROVIDED. PT REFUSES SANDWICH THIS TIME. AT BS. VSS. ALARMS ON AND C/L IN REACH.
--- NOTE | 2020-08-30 17:29 | NUR ---
R GROIN SITE SOFT, C/D/I. ALL DISCHARGE INSTRUCTIONS REVIEWED WITH PT AND , INCLUDING RESTRICTIONS, MEDS ( HAD NEW EFFIENT PRESCRIPTION FILLED ALREADY), AND F/U APPT. BOTH VERBLIZE UNDERSTANDING.
--- NOTE | 2020-08-30 17:35 | NUR ---
PIV D/C'D INTACT, DSG APPLIED. PT ALLOWED UP TO GET DRESSED, ASSISTING.
--- NOTE | 2020-08-30 17:45 | NUR ---
R GROIN SITE C/D/I, NO S/S BLEEDING OR HEMATOMA. PT D/C'D VIA WC TO PRIVATE VEHICLE WITH ALL PAPERWORK AND BELONIGINGS.
--- NOTE | 2020-08-31 08:08 | HP ---
PATIENT: ALMA TIM MEDICAL RECORD: [id number] ACCOUNT: [id number] LOCATION:NAI : 45 ADMISSION DATE: 08/30/20 PCP: UMAIR AMADOR MD HISTORY AND PHYSICAL EXAMINATION HISTORY OF PRESENT ILLNESS: A 75-year-old gentleman with known history of coronary artery disease, most recently with intervention to the [place] right. He has a history of hypertension, hyperlipidemia as well as coronary artery disease, presented to the office initially with rapidly progressing symptoms from less than one block to basically rest symptomatology a day prior to admission. He is being admitted for angiography and revascularization as indicated. PAST MEDICAL HISTORY: Include; 1. History of hypertension. 2. Hyperlipidemia. 3. Coronary artery disease as described above. 4. Questionable history of atrial fibrillation versus another atrial arrhythmia. ALLERGIES: None known. MEDICATIONS: Include nadolol 20 every day, isosorbide 30 every day, Benicar 40 every day, amlodipine 5 every day, aspirin 81 every day, diclofenac. PHYSICAL EXAMINATION: GENERAL: Well-developed, well-nourished, no acute distress, appears stated age. HEENT: Normocephalic, atraumatic. NECK: No JVD or bruit. CARDIOVASCULAR: Regular rate and rhythm. LUNGS: Perez clear. ABDOMEN: Soft, nontender. EXTREMITIES: Pulses 2+. There is no edema. IMPRESSION: Accelerated angina, acute coronary syndrome. PLAN: For angiography and intervention based on the above. TRANSINT:[id number] Voice Confirmation ID: [id number] DOCUMENT ID: [id number] UMAIR AMADOR MD at 0808 CC: [id number] DICTATION DATE: 08/30/20 1305 DRIVER EXAMINER: 08/30/20 1545 [facility] 08/30/20 [place] [id number]
--- NOTE | 2020-09-01 14:15 | OP ---
PATIENT NAME: ALMA TIM MEDICAL RECORD: [id number] :45 LOCATION:[facility] ADMISSION DATE: SURGEON: UMAIR AMADOR MD DATE OF OPERATION: 08/30/2020 PROCEDURE: Left heart catheterization, selective coronary angiography, right femoral artery approach. CATHETERS: A 5-Central [place] sheath, 5/4 left and right [place], 5/4 pig. The procedure was well tolerated. We proceeded to do PTCA of saphenous vein graft to diagonal. FINDINGS: Left ventriculography in 30-degree SHEPHERD view: Normal wall motion and normal systolic function. CORONARY ANATOMY: LEFT MAIN: The main is free of disease. LAD: Fills for a short period of time, competitive flow via the DOYLE. CIRCUMFLEX: Previously placed long stent is widely patent. This is a codominant system. RIGHT CORONARY ARTERY: Previously placed stent is widely patent. SAPHENOUS VEIN GRAFT TO THE DIAGONAL: Multiple areas of stenosis with tightest being 90%. DOYLE to LAD: Widely patent throughout its course with no evidence of post-anastomotic stenosis. PLAN: Intervention to the saphenous vein graft to the diagonal. DESCRIPTION OF PROCEDURE: After 5-Central African sheath was exchanged for a 6-Central African sheath, we used both a JR guiding and a LCB guiding catheter. We were able to place a wire across the lesions with some degree of difficulty. Initially, attempted to place without a balloon; however, we could not track it through the saphenous graft. Therefore, we put a small balloon, exchanged for PTX support wire. Multiple inflations were performed up and down the saphenous graft with multiple areas of stenosis, difficulty tracking the balloon. We then attempted to track a stent down to the tightest area and unable to deploy it, so the balloon withdrawn. The procedure was stopped at this point. FINAL IMPRESSION: PTCA to the diagonal with a 50% residual, unable to deploy a stent. 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 Major myocardial territories are well vascularized. LV function remains normal. TRANSINT:[id number] Voice Confirmation ID: [id number] DOCUMENT ID: [id number] UMAIR AMADOR MD at [id number] CC: [id number] DICTATION DATE: 08/30/20 1436 BOX MACHINE OPERATOR: 08/30/20 7718 [facility] 08/30/20 [place] [id number] [place] [id number]
== END 2020-08-30 17:45 | disposition home or self-care (01) ==
LOC: D.CATH 10:54
PROVIDERS: ATTEND Internal Medicine Interventional Cardiology
DX: I25.110 Atherosclerotic heart disease of native coronary artery with unstable angina pectoris (principal); I10 Essential (primary) hypertension; E78.5 Hyperlipidemia, unspecified

== ENCOUNTER → 2020-10-06 14:10 | Outpatient (CLI) | payer MEDICARE, BC ==
[2020-08-30 11:42] VITALS: BMI 37.7
[~2020-10-06 14:10] MED LIST changes: +REPATHA SY140 MG/1 M SC; +VOLTAREN100 GM TOPICAL; +VOLTAREN75 MG
== END | disposition home or self-care (01) ==
LOC: D.US 14:00
PROVIDERS: ATTEND Internal Medicine Interventional Cardiology
DX: R09.89 Other specified symptoms and signs involving the circulatory and respiratory systems (principal); I73.9 Peripheral vascular disease, unspecified